=== PATIENT | male | born 1995 | race Caucasian/White ===

== ENCOUNTER 2018-06-03 20:18 | Inpatient (IN) | payer OTHER ==
[2018-06-03 22:16] LABS: ADD MAN DIFF? NO
[2018-06-03] MEDS: VANCOMYCIN 1 GM (PMX) 250 ML IVPB (22:21)
[2018-06-03 22:27] LABS: BASOPHIL # 0.1 10^3/ul (0.0-0.1); BASOPHILS % 0.9 % (0.0-2.0); EOSINOPHILS # 0.4 10^3/ul (0.0-0.5); EOSINOPHILS % 3.9 % (0.0-7.0); HEMATOCRIT 44.7 % (42.0-52.0); HEMOGLOBIN 14.7 g/dl (14.0-18.0); LYMPHOCYTES # 3.1 10^3/ul (0.8-2.9); MEAN CORPUSCULAR HEMOGLOBIN 30.6 pg (29.0-33.0); MEAN CORPUSCULAR HGB CONC 32.9 g/dl (32.0-37.0); MEAN CORPUSCULAR VOLUME 93.1 fl (82.0-101.0); MEAN PLATELET VOLUME 12.2 fl (7.4-10.4); MONOCYTE # 0.8 10^3/ul (0.3-0.9); MONOCYTES % 8.1 % (0.0-11.0); NEUTROPHIL # 5.5 10^3/ul (1.6-7.5); NEUTROPHILS % 55.8 % (39.0-77.0); PLATELET COUNT 222 10^3/UL (140-415); RED CELL DISTRIBUTION WIDTH 12.1 % (11.5-14.5)
[2018-06-03 22:27] LABS: WHITE BLOOD COUNT 9.8 10^3/ul (4.8-10.8)
[2018-06-03 22:31] LABS: ADD UMIC NO; UR ASCORBIC ACID NEGATIVE (NEGATIVE); UR BILIRUBIN (Dip) NEGATIVE (NEGATIVE); UR BLOOD (Dip) NEGATIVE (NEGATIVE); UR CLARITY CLEAR (CLEAR); UR COLOR YELLOW (YELLOW); UR GLUCOSE (Dip) NEGATIVE (NEGATIVE); UR KETONES (Dip) NEGATIVE (NEGATIVE); UR LEUKOCYTE ESTERASE (Dip) NEGATIVE Leu/ul (NEGATIVE); UR NITRITE (Dip) NEGATIVE (NEGATIVE); UR SPECIFIC GRAVITY (Dip) 1.027 (1.003-1.030); UR TOTAL PROTEIN (Dip) NEGATIVE (NEGATIVE); UR UROBILINOGEN (Dip) 1+ mg/dL (NEGATIVE)
[2018-06-03 22:45] LABS: ALANINE AMINOTRANSFERASE 48 IU/L (13-69); ALBUMIN 4.6 g/dl (3.3-4.9); ALKALINE PHOSPHATASE 69 IU/L (42-121); ANION GAP 9 (5-13); ASPARTATE AMINO TRANSFERASE 48 IU/L (15-46); BILIRUBIN,INDIRECT 0.3 mg/dl (0-1.1); BILIRUBIN,TOTAL 0.3 mg/dl (0.2-1.3); BLOOD UREA NITROGEN 23 mg/dl (7-20); CALCIUM 9.6 mg/dl (8.4-10.2); CARBON DIOXIDE 24 mmol/L (21-31); CHLORIDE 106 mmol/L (97-110); CREATININE 1.01 mg/dl (0.61-1.24); Estimated GFR > 60 mL/min (>60); GLUCOSE 84 mg/dl (70-220); POTASSIUM 4.1 mmol/L (3.5-5.1); SODIUM 139 mmol/L (135-144)
[2018-06-03 22:48] LABS: INR 0.88; PARTIAL THROMBOPLASTIN TIME 27.6 Sec (23.0-35.0); PT RATIO 0.9; THROMBIN TIME 16.3 SEC (13.8-19.1)
[2018-06-03 22:50] LABS: C-REACTIVE PROTEIN < 0.5 mg/dl (0.0-0.9)
[2018-06-03 22:52] LABS: ALBUMIN/GLOBULIN RATIO 1.17; TOTAL PROTEIN 8.5 g/dl (6.1-8.1)
[2018-06-03 23:20] LABS: PLATELET COUNT 222 10^3/UL (140-415)
[2018-06-04] MEDS ORDERED: HYDROCODONE/APAP (5/325) TAB PO
[2018-06-04] MEDS ORDERED: ACETAMINOPHEN 325 MG TAB PO
[2018-06-04] MEDS ORDERED: NACL 0.9% 3 ML SYG IV
[2018-06-04] MEDS ORDERED: morphine 2 MG INJ IV
[2018-06-04] MEDS ORDERED: ONDANSETRON 4 MG TAB PO
[2018-06-04 00:09] LABS: ERYTHROCYTE SEDIMENTATION RATE 2 mm/Hr (0-15)
[2018-06-04] MEDS: SOD CHLORIDE 0.9% 1,000 ML IV ×3 (01:02→23:21)
[2018-06-04] MEDS: CEFAZOLIN 1 GM/50 ML (PMX) 50 ML IVPB ×3 (01:08→13:19)
[2018-06-04 06:04] LABS: ADD MAN DIFF? NO
[2018-06-04 06:06] LABS: BASOPHIL # 0.1 10^3/ul (0.0-0.1); BASOPHILS % 0.6 % (0.0-2.0); EOSINOPHILS # 0.4 10^3/ul (0.0-0.5); EOSINOPHILS % 3.9 % (0.0-7.0); HEMATOCRIT 42.4 % (42.0-52.0); LYMPHOCYTES # 2.4 10^3/ul (0.8-2.9); LYMPHOCYTES % 27.1 % (15.0-51.0); MEAN CORPUSCULAR VOLUME 93.8 fl (82.0-101.0); MEAN PLATELET VOLUME 12.3 fl (7.4-10.4); MONOCYTE # 0.7 10^3/ul (0.3-0.9); MONOCYTES % 7.8 % (0.0-11.0); NEUTROPHIL # 5.4 10^3/ul (1.6-7.5); PLATELET COUNT 185 10^3/UL (140-415); RED BLOOD COUNT 4.52 10^6/ul (4.70-6.10); RED CELL DISTRIBUTION WIDTH 12.1 % (11.5-14.5)
[2018-06-04 06:36] LABS: ALANINE AMINOTRANSFERASE 48 IU/L (13-69); ALBUMIN 4.1 g/dl (3.3-4.9); ALBUMIN/GLOBULIN RATIO 1.41; ALKALINE PHOSPHATASE 64 IU/L (42-121); ANION GAP 10 (5-13); ASPARTATE AMINO TRANSFERASE 38 IU/L (15-46); BILIRUBIN,INDIRECT 0.6 mg/dl (0-1.1); BILIRUBIN,TOTAL 0.6 mg/dl (0.2-1.3); BLOOD UREA NITROGEN 19 mg/dl (7-20); CALCIUM 8.8 mg/dl (8.4-10.2); CARBON DIOXIDE 25 mmol/L (21-31); CHLORIDE 105 mmol/L (97-110); CHOL/HDL RATIO 3.9 RATIO; CHOLESTEROL 154 mg/dl (100-200); CREATININE 0.96 mg/dl (0.61-1.24); Estimated GFR > 60 mL/min (>60); GLUCOSE 94 mg/dl (70-220); HDL CHOLESTEROL 39 mg/dl (30-63); LDL CHOLESTEROL,CALCULATED 100 mg/dl; MAGNESIUM 2.2 mg/dl (1.7-2.5); POTASSIUM 4.2 mmol/L (3.5-5.1); SODIUM 140 mmol/L (135-144); TRIGLYCERIDES 75 mg/dl (0-149)
[2018-06-04 06:37] LABS: HEMOGLOBIN A1C 5.1 % (0-5.9)
[2018-06-04] MEDS ORDERED: ROPIVACAINE 0.5 % 30 ML VIAL ×2 (06:51→07:36)
[2018-06-04] MEDS ORDERED: SUCCINYLCHOLINE CHLORIDE 100 MG/5 ML SYG IV (07:30)
[2018-06-04] MEDS ORDERED: LIDOCAINE 2% (SDV) 5 ML INJ (07:30)
[2018-06-04] MEDS ORDERED: ROCURONIUM 50 MG INJ (07:30)
[2018-06-04] MEDS ORDERED: PROPOFOL 20 ML ×2 (07:30→08:40)
[2018-06-04] MEDS ORDERED: FENTAnyl 50 MCG/ML VIAL (07:31)
[2018-06-04] MEDS ORDERED: MIDAZOLAM 1 MG/ML 2 ML INJ (07:31)
[2018-06-04] MEDS ORDERED: FAMOTIDINE 20 MG INJ (08:47)
[2018-06-04] MEDS ORDERED: ONDANSETRON 4 MG INJ (08:47)
[2018-06-04] MEDS ORDERED: DEXAMETHASONE 4 MG/ML 5 ML INJ (08:47)
[2018-06-04] MEDS ORDERED: VANCOMYCIN 1 GM INJ (09:07)
[2018-06-04] MEDS ORDERED: VANCOMYCIN 1 GM (PMX) 250 ML (09:07)
[2018-06-04] MEDS ORDERED: HYDROmorphONE 2 MG/ML SYG (10:18)
[2018-06-04] MEDS ORDERED: GLYCOPYRROLATE 0.4 MG INJ (10:57)
[2018-06-04] MEDS ORDERED: NEOSTIGMINE 3 MG/3 ML SYRINGE (10:57)
[2018-06-04] MEDS: BACITRACIN 50000 UNITS INJ IRR (11:03)
[2018-06-04] MEDS: POLYMYXIN B 500000 UNIT INJ (11:03)
[2018-06-04] MEDS: NEOMYC/POLYMYX/BACIT 30 GM OINT (11:03)
[2018-06-04] MEDS ORDERED: LABETALOL HCL 20MG INJ (11:05)
[2018-06-04] MEDS ORDERED: DIPHENHYDRAMINE 25 MG CAP PO (12:00)
[2018-06-04] MEDS: morphine 10 MG INJ IV ×3 (13:25→21:57)
[2018-06-04] MEDS: OXYCODONE/ACETAMINOPHEN (5/325) TAB PO (15:27)
[2018-06-04] MEDS: ONDANSETRON 4 MG INJ IV (18:02)
[2018-06-04] MEDS: VANCOMYCIN 500 MG (PMX) 100 ML IVPB (20:46)
[2018-06-05] MEDS: morphine 10 MG INJ IV ×4 (08:07→21:59)
[2018-06-05] MEDS: VANCOMYCIN 500 MG (PMX) 100 ML IVPB (09:34)
[2018-06-05] MEDS: OXYCODONE/ACETAMINOPHEN (5/325) TAB PO ×3 (09:34→19:54)
[2018-06-05] MEDS: ENOXAPARIN 40 MG/0.4 ML SYG SC (09:40)
[2018-06-05] MEDS ORDERED: VANCOMYCIN IV PER PHARMACY XX (12:00)
[2018-06-05] MEDS: SOD CHLORIDE 0.9% 1,000 ML IV ×2 (13:21→14:56)
[2018-06-05] MEDS: VANCOMYCIN 1 GM 250 ML IVPB (17:39)
[2018-06-06] MEDS: OXYCODONE/ACETAMINOPHEN (5/325) TAB PO ×4 (00:18→22:16)
[2018-06-06] MEDS: morphine 10 MG INJ IV ×4 (04:14→20:45)
[2018-06-06] MEDS: SOD CHLORIDE 0.9% 1,000 ML IV (05:32)
[2018-06-06] MEDS: VANCOMYCIN 1 GM 250 ML IVPB ×2 (05:33→17:51)
[2018-06-06 06:51] LABS: BLOOD UREA NITROGEN 13 mg/dl (7-20)
[2018-06-06 06:51] LABS: CREATININE 0.83 mg/dl (0.61-1.24)
[2018-06-06] MEDS: ENOXAPARIN 40 MG/0.4 ML SYG SC (08:04)
[2018-06-06] MEDS: LIDOCAINE 1% (MPF) 5 ML VIAL SC (12:00)
[2018-06-06 16:13] LABS: VANCOMYCIN,TROUGH 5.7 ug/ml (10.0-20.0)
[2018-06-07] MEDS: VANCOMYCIN 1 GM 250 ML IVPB ×3 (01:07→16:31)
[2018-06-07] MEDS: ENOXAPARIN 40 MG/0.4 ML SYG SC (08:07)
[2018-06-07] MEDS: morphine 10 MG INJ IV ×4 (08:07→21:02)
[2018-06-07] MEDS: DOCUSATE SODIUM 100 MG CAP PO (12:18)
[2018-06-07] MEDS: OXYCODONE/ACETAMINOPHEN (5/325) TAB PO ×2 (13:57→19:54)
[2018-06-08] MEDS: BISACODYL (EC) 5 MG TAB PO
[2018-06-08] MEDS: VANCOMYCIN 1 GM 250 ML IVPB ×2 (00:57→09:21)
[2018-06-08] MEDS: morphine 10 MG INJ IV ×5 (01:06→21:37)
[2018-06-08] MEDS: OXYCODONE/ACETAMINOPHEN (5/325) TAB PO (03:55)
[2018-06-08] MEDS: ONDANSETRON 4 MG INJ IV (08:32)
[2018-06-08] MEDS: ENOXAPARIN 40 MG/0.4 ML SYG SC (08:34)
[2018-06-08 08:36] LABS: VANCOMYCIN,TROUGH 16.5 ug/ml (10.0-20.0)
[2018-06-08] MEDS: traMADol 50 MG TAB PO ×2 (17:38→23:01)
[2018-06-08] MEDS: VANCOMYCIN 750 MG (PMX) 250 ML IVPB (17:38)
[2018-06-09] MEDS: VANCOMYCIN 750 MG (PMX) 250 ML IVPB ×3 (00:31→17:40)
[2018-06-09] MEDS: morphine 10 MG INJ IV ×3 (08:17→21:31)
[2018-06-09] MEDS: ENOXAPARIN 40 MG/0.4 ML SYG SC (08:17)
[2018-06-09 17:13] LABS: VANCOMYCIN,TROUGH 8.4 ug/ml (10.0-20.0)
[2018-06-09] MEDS: CHOLECALCIFEROL 2,000 UNIT CAP PO (17:39)
[2018-06-09] MEDS: traMADol 50 MG TAB PO ×2 (17:48→23:40)
[2018-06-10] MEDS: morphine 10 MG INJ IV ×5 (01:56→19:46)
[2018-06-10] MEDS: VANCOMYCIN 1 GM 250 ML IVPB ×3 (01:56→16:34)
[2018-06-10] MEDS: CHOLECALCIFEROL 2,000 UNIT CAP PO (09:57)
[2018-06-10] MEDS: ENOXAPARIN 40 MG/0.4 ML SYG SC (09:57)
[2018-06-10] MEDS: LIDOCAINE 1% (MPF) 5 ML VIAL SC (13:30)
[2018-06-10] MEDS: traMADol 50 MG TAB PO (16:36)
[2018-06-10] MEDS: TRIMETHOPRIM/SULFAMETHOX (DS) TAB PO (21:38)
[2018-06-11] MEDS: VANCOMYCIN 1 GM 250 ML IVPB ×3 (00:08→19:38)
[2018-06-11] MEDS: morphine 10 MG INJ IV ×4 (00:09→20:33)
[2018-06-11 08:25] LABS: BLOOD UREA NITROGEN 13 mg/dl (7-20)
[2018-06-11 08:25] LABS: CREATININE 0.79 mg/dl (0.61-1.24)
[2018-06-11 08:31] LABS: VANCOMYCIN,TROUGH 12.2 ug/ml (10.0-20.0)
[2018-06-11] MEDS: ENOXAPARIN 40 MG/0.4 ML SYG SC (08:54)
[2018-06-11] MEDS: TRIMETHOPRIM/SULFAMETHOX (DS) TAB PO ×2 (09:00→12:14)
[2018-06-11] MEDS: CHOLECALCIFEROL 2,000 UNIT CAP PO ×2 (09:00→12:14)
[2018-06-11] MEDS: traMADol 50 MG TAB PO (22:50)
[2018-06-12] MEDS: morphine 10 MG INJ IV ×3 (00:42→14:51)
[2018-06-12] MEDS: VANCOMYCIN 1 GM 250 ML IVPB ×3 (02:05→17:02)
[2018-06-12] MEDS: CHOLECALCIFEROL 2,000 UNIT CAP PO (09:21)
[2018-06-12] MEDS: ENOXAPARIN 40 MG/0.4 ML SYG SC (09:23)
[2018-06-12] MEDS: BISACODYL (EC) 5 MG TAB PO (10:28)
[2018-06-12] MEDS: DOCUSATE SODIUM 100 MG CAP PO (10:28)
== END 2018-06-12 21:20 | disposition home or self-care (01) | DRG 908 ==
LOC: PP2 23:39 → E/R 20:18
PROC: 0QPB04Z Removal of Internal Fixation Device from Right Lower Femur, Open Approach (ICD-10-PCS; principal; 2018-06-04 08:23)
PROC: 0QBB0ZZ Excision of Right Lower Femur, Open Approach (ICD-10-PCS; 2018-06-04 08:23)
PROC: 02HV33Z Insertion of Infusion Device into Superior Vena Cava, Percutaneous Approach (ICD-10-PCS; 2018-06-04 08:23)
DX: T85.79XA Infection and inflammatory reaction due to other internal prosthetic devices, implants and grafts, initial encounter (principal); I50.32 Chronic diastolic (congestive) heart failure; M00.871 Arthritis due to other bacteria, right ankle and foot; L02.415 Cutaneous abscess of right lower limb; B95.62 Methicillin resistant Staphylococcus aureus infection as the cause of diseases classified elsewhere; T84.84XA Pain due to internal orthopedic prosthetic devices, implants and grafts, initial encounter; E55.9 Vitamin D deficiency, unspecified
CPT/HCPCS: 36569; 71045; 73610-RT; 76937; 80053; 80061; 80202; 81003; 82306; 82565; 83036; 83735; 84443; 84520; 85025; 85049; 85610; 85651; 85670; 85730; 86140; 87070; 87075; 87102; 87116; 88300; 93005; 93306; 96374; 97161; 99285-25